=== PATIENT | female | born 1935 | race Caucasian/White ===

== ENCOUNTER 2021-03-11 18:37 | Emergency (ER) | payer OTHER ==
[~2021-03-11] VITALS: Ht 162.6 cm; Wt 61.2 kg
[2021-03-11 18:42] VITALS: BP_SYST 167
--- NOTE | 2021-03-11 18:50 | NUR ---
Patient to ER bed 7 to gown for evaluation. Side rails up.
--- NOTE | 2021-03-11 18:52 | NUR ---
PT SUSTAINED A FALL WHILE ATTEMPTING TO GET INTO A VEHICLE. PT SUSTAINED INJURIES TO THE RIGHT HIP, RIGHT KNEE, AND RIGHT LOWER BACK. 12/08 PAIN. DENIES KO
--- NOTE | 2021-03-11 18:54 | NUR ---
ER at bedside examining patient.
--- NOTE | 2021-03-11 19:15 | NUR ---
CARE ENDORSED TO EM NUNES.
--- NOTE | 2021-03-11 20:00 | NUR ---
Pt taken to Radiology in stable condition
--- NOTE | 2021-03-11 20:13 | NUR ---
Pt want ED Staff to call daughter Trista [phone] to say she's ok and " call jayy " to bring pt's cell phone in
[2021-03-11] MEDS ORDERED: KETOROLAC TROMETHAMINE 60 MG/2 ML VIAL IM ONE (20:15)
[2021-03-11] MEDS ORDERED: IBUP-1969 PO (20:32)
[2021-03-11 20:45] VITALS: BP_SYST 167
--- NOTE | 2021-03-11 20:45 | NUR ---
Patient given written and verbal discharge instructions and verbalizes understanding. DR. MARILYN KENYON MD discussed with patient the results and treatment provided. Patient in stable condition. ID arm band removed. IV catheter removed intact and dressing applied, no active bleeding. Rx of IBUPROFEN given. Patient educated on pain management and to follow up with PMD. Pain Scale 0/10. Opportunity for questions provided and answered. Medication side effect fact sheet provided.
== END 2021-03-11 20:45 | disposition home or self-care (01) ==
LOC: SED 18:37
DX: S39.012A Strain of muscle, fascia and tendon of lower back, initial encounter (principal); S80.02XA Contusion of left knee, initial encounter; S09.90XA Unspecified injury of head, initial encounter; S79.911A Unspecified injury of right hip, initial encounter; V98.8XXA Other specified transport accidents, initial encounter; Y93.89 Activity, other specified; Y92.89 Other specified places as the place of occurrence of the external cause; Y99.8 Other external cause status
CPT/HCPCS: 72131; 72170; 73502; 76376; 96372; 99284; J1885